=== PATIENT | female | born 1995 | race Caucasian/White ===

== ENCOUNTER 2021-04-25 11:32 | Observation (INO) | payer OTHER ==
[2021-04-25 12:08] LABS: Appearance SLIGHTLY CLOUDY (CLEAR); Bilirubin NEGATIVE (NEGATIVE); Blood NEGATIVE Ery/ul (0-5); Epithelial Cells RARE /HPF (FEW); Glucose NEGATIVE (NEGATIVE); Ketones NEGATIVE (NEGATIVE); Leukocyte Esterase NEGATIVE (NEGATIVE); Mucus SLIGHT /HPF (NEGATIVE); Nitrite NEGATIVE (NEGATIVE); Protein,Urine Dip 30 (Negative); Specific Gravity 1.021 (1.005-1.025); Urobilinogen NEGATIVE mg/dL (0-1); WBC 0-2 /HPF (0-5)
[2021-04-25 12:23] LABS: Bacteria NONE SEEN /HPF (NEGATIVE)
[2021-04-25 12:25] VITALS: BP 128/60; PULSE 70
[2021-04-25 12:45] LABS: Amphetamine,Urine NEGATIVE (NEGATIVE); Barbiturate,Urine NEGATIVE (NEGATIVE); Benzodiazepine,Urine NEGATIVE (NEGATIVE); Cocaine,Urine NEGATIVE (NEGATIVE); Methadone,Urine NEGATIVE (NEGATIVE); Opiate,Urine NEGATIVE (NEGATIVE); PCP,Urine NEGATIVE (NEGATIVE); THC,Urine NEGATIVE (NEGATIVE)
[2021-04-25] MEDS ORDERED: Celestone Soluspan 6MG/ML IM ONE (13:06)
[2021-04-25] MEDS ORDERED: Magnesium Sulfate 40 Gm/1000 Ml H2O Premix*** 1,000 ML IV SCH (13:30)
[2021-04-25] MEDS ORDERED: Lactated Ringers 1,000 ML IV ONE (13:41)
[2021-04-25] MEDS ORDERED: Zithromax 250 MG TABLET PO ONE (13:43)
[2021-04-25 13:44] LABS: Absolute Neutrophil Ct (ANC) 6.08 (1.4-6.9); BASOPHIL % 0.2 % (0.0-0.4); Basophil (Absolute #) 0.02 (0-0.4); Eosinophil % 1.5 % (0.00-5.0); Eosinophil (Absolute #) 0.13 (0-0.5); Hematocrit 37.7 % (35-47); Hemoglobin 11.9 gm/dl (12.0-16.0); Lymphocyte (Absolute #) 1.56 (1.0-4.6); Lymphocytes % 18.5 % (24.0-44.0); Mean Corpuscular Hemoglobin 25.9 pg (26-32); Mean Corpuscular Hgb Concent. 31.6 g/dl (32-36); Mean Platelet Volume 9.8 fl (7.5-11.0); Monocyte (Absolute #) 0.66 (0.0-1.3); Monocytes % 7.8 % (0.0-12.0); Platelet Count 246 K/mm3 (150-450); Red Cell Distribution Width 16.3 % (11.5-14.0); White Blood Count 8.5 K/mm3 (4.0-10.5)
--- NOTE | 2021-04-25 13:57 | XRAY ---
Indication: Spontaneous rupture of membranes. 2-dimensional OB ultrasound performed. Comparison: March 08, 2021. Again there is a single viable intrauterine in cephalic presentation. heart rate 155 BPM. Visualized stomach and bladder are unremarkable. Again anterior placenta without abruption/previa. BPD measures 6.15 cm corresponding to 25 weeks 0 days. HC measures 22.13 cm corresponding to 24 weeks 1 days. AC measures 19.29 cm corresponding to 24 weeks 0 days. FL measures 4.62 cm corresponding to 25 weeks 2 days. RADHA is 10.0 cm. Impression: Again single viable intrauterine with mean gestational age 24 weeks 4 days. Normal progression of . No new/acute findings.
[2021-04-25] MEDS ORDERED: Sodium Chloride 0.9% 500 ML 500 ML IV SCH (14:00)
[2021-04-25] MEDS ORDERED: OMNIPEN 2 GM*** 2 G in Sodium Chloride 100ML MINI-BAG PLUS 100 ML IV SCH (14:00)
[2021-04-25] MEDS ORDERED: Lactated Ringers 1,000 ML IV SCH (14:00)
[2021-04-25 14:03] LABS: ALBUMIN 3.4 g/dL (3.5-5.0); ALKALINE PHOSPHATASE 70 U/L (38-126); ANION GAP 13.1 MEQ/L (5-15); BLOOD UREA NITROGEN 8 mg/dL (7-17); CHLORIDE 104 mmol/L (98-107); Carbon Dioxide 22 mmol/L (22-30); Creatinine 1 0.58 mg/dL (0.52-1.04); EST GLOMERULAR FILTRATION RATE > 60.0 ML/MIN; Glucose 55 mg/dL (74-106); Potassium 3.8 mmol/L (3.5-5.1); SGOT/AST 19 U/L (14-36); SGPT/ALT 12 U/L (0-35); SODIUM 136 mmol/L (137-145); Total Protein 6.2 g/dL (6.3-8.2)
== END 2021-04-25 15:53 ==
LOC: MED SURG 11:32
PROVIDERS: ADMIT Family Medicine; ATTEND Family Medicine
DX: O60.02 Preterm labor without delivery, second trimester (principal); Z3A.26 26 weeks gestation of pregnancy
CPT/HCPCS: 36415; 76816; 80053; 80307; 81001; 82947; 84112; 85025; 87086; G0378; J0290; J0702; A9270-GY

== ENCOUNTER 2021-09-18 18:05 | Emergency (ER) | payer OTHER ==
--- NOTE | 2021-09-18 19:46 | ERPHSYRPT ---
- History of Present Illness Time Seen by Provider: 09/18/21 18:08 Source: patient Exam Limitations: no limitations Patient Subjective Stated Complaint: pt here for right leg pain aobut 10 mins ago, no injury, she is worried about a blood clot . denies any injury to leg Triage Nursing Assessment: pt alert, resp easy, face mask applied, skin w/d/p, no reddness or swelling to right leg Physician History: 26 years old morbidly obese female presented in the ER for evaluation of DVT as patient noticed having moderate to severe sharp pain in the right lower leg almost half an hour ago while she was resting which lasted for almost 10 to 15 minutes and started to improve and now having minimal dull aching pain. No obvious swelling. Denies any fall or trauma. no history of DVT. Not taking any control pills. Does have strong family history of DVT. Timing/Duration: hour(s) (0.5), sudden, improved Severity: moderate Modifying Factors: Improves With: nothing Associated Symptoms: denies symptoms Allergies/Adverse Reactions: bupropion [From Wellbutrin] Allergy (Verified 09/18/21 18:32) Home Medications: Escitalopram Oxalate 10 mg [Lexapro 10 MG] 1 ea DAILY 09/18/21 [History] Etonogestrel/Ethinyl Estradiol [Eluryng Vaginal Ring] 1 each VG UD 09/18/21 [History] Hx Influenza Vaccination/Date Given: No Hx Pneumococcal Vaccination/Date Given: No Immunizations Up to Date: Yes Travel Risk - International Travel Have you traveled outside of the country in past 3 weeks: No - Coronavirus Screening Are you exhibiting any of the following symptoms?: No Close contact with a COVID-19 positive Pt in past 14-21 Days: No - Vaccine Status Have you recieved a Covid-19 vaccination: No - Review of Systems Constitutional: No Symptoms Eyes: No Symptoms Ears, Nose, & Throat: No Symptoms Respiratory: No Symptoms Cardiac: No Symptoms Abdominal/Gastrointestinal: No Symptoms Genitourinary Symptoms: No Symptoms Musculoskeletal: Myalgias Skin: No Symptoms Neurological: No Symptoms Psychological: No Symptoms Endocrine: No Symptoms Hematologic/Lymphatic: No Symptoms Immunological/Allergic: No Symptoms - Past Medical History Pertinent Past Medical History: Yes Psycho-Social History: Depression Other Medical History: vaginal delivery may 2021 - Past Surgical History Past Surgical History: No - Social History Smoking Status: Current every day smoker Exposure to second hand smoke: Yes Drug Use: none Patient Lives Alone: No - Female History Hx Last Menstrual Period: now Hx Now: No - Nursing Vital Signs Nursing Vital Signs: Initial Vital Signs Temperature 98.3 F 09/18/21 18:28 Pulse Rate 63 09/18/21 18:28 Respiratory Rate 18 09/18/21 18:28 Blood Pressure 120/68 09/18/21 18:28 O2 Sat by Pulse Oximetry 94 L 09/18/21 18:28 Pain Scale Pain Intensity 4 - Physical Exam General Appearance: no apparent distress, alert Eye Exam: PERRL/EOMI Ears, Nose, Throat Exam: normal ENT inspection Neck Exam: normal inspection, full range of motion Respiratory Exam: normal breath sounds, lungs clear Cardiovascular Exam: regular rate/rhythm, normal heart sounds Extremity Exam: normal inspection, normal range of motion, pelvis stable, other (Positive Homans' sign on right. No obvious swelling. No erythema/redness.) Neurologic Exam: alert, oriented x 3, cooperative Skin Exam: normal color SpO2 Interpretation: normal SpO2: 94 O2 Delivery: Room Air Ordered Tests: Active Orders 24 hr Category Date Time Status VENOUS UNILAT/LIMITED EXTREMIT [US] Stat Exams 09/18/21 19:58 Ordered D-DIMER QUANTITATIVE Stat Lab 09/18/21 19:10 Completed Lab/Rad Data: Laboratory Results 09/18/21 Range/Units 19:10 D-Dimer 1122 H* (215-500) ng/mL - Progress Progress: improved, re-examined Progress Note: 09/18/21 22:06 Patient does not want any pain medication. D-dimers were elevated and ultrasound is negative. Pain seems to be musculoskeletal, recommended Tylenol ibuprofen and outpatient follow-up. No signs of cellulitis and no trauma. Di scussed signs symptoms of worsening needing return to ER which she seems understanding. Counseled pt/family regarding: lab results, diagnosis, need for follow-up, rad results - Departure Departure Disposition: Home Clinical Impression: Leg pain, right Condition: Stable Critical Care Time: No Referrals: BART ESCALERA [Primary Care Provider] - Follow Up with PCP/3 days Instructions: Deep Vein Thrombosis (Blood Clots in the Legs) (DC) Additional Instructions: Take Tylenol/ibuprofen as needed. Follow-up with primary care for reevaluation. If pain persists or returns you can come back and may need another ultrasound in 1 week. Also return to ER if noticed swelling redness/fever chills or difficulty ambulation.
[2021-09-18 22:05] VITALS: BP 130/84; PULSE 70
[2021-09-18 22:08] VITALS: O2SAT 94
--- NOTE | 2021-09-19 09:08 | XRAY ---
Indication: Right leg pain. Two-dimensional sonogram and color Doppler imaging of the major venous vessels of the right leg performed. Comparison: None No thrombus seen in the examined deep venous vessels of the right leg including greater saphenous vein. Veins demonstrate normal compressibility. Venous waveforms are normal with and without augmentation. Impression: Right leg negative for DVT. Comment: Preliminary report was given.
== END 2021-09-18 22:19 | disposition home or self-care (01) ==
LOC: ED 18:05
DX: M79.661 Pain in right lower leg (principal); Z72.0 Tobacco use; R79.1 Abnormal coagulation profile
CPT/HCPCS: 36415; 85379; 93971; 99284